=== PATIENT | male | born 1960 | race Caucasian/White ===

== ENCOUNTER 2017-04-22 09:42 | Emergency (ER) | payer MEDICARE ==
--- NOTE | 2017-04-22 10:25 | UC ---
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 he is here with his sister. she states he had a colonoscopy in July of last year and it was normal. He is on blood thinner for Afib. He has had some loose stools lately. He denies cosntipation. He said he was having pain with BM yesterday. " He is here w/ his sister Milena, with whom he lives. Their Mom lives w/ them as well. He moved here in 01/06 from [place]. he has a pcp but has not yet established w/ cardiology or GI. scope was done in [place]. -no known h/o diverticulosis or hemorrhiods. -blood is bright red, not dark. -denies being lightheaded or dizzy. no cp or SOB. no syncope -he is an insulin for poorly controlled DM w/ recent a1c of 10. -follows w/ [facility] in [place]. - History Of Current Complaint Chief Complaint: UCGI Stated Complaint: RECTAL BLEEDING Time Seen by Provider: 04/22/17 10:12 Pain Intensity: 0 - Allergies/Home medications Allergies/Adverse Reactions: Allergies Allergy/AdvReac Type Severity Reaction Status Date / Time ibuprofen [From Advil] Allergy Headache Verified 04/22/17 10:04 Home Medications: Home Medications Apixaban* [Eliquis*] 5 mg PO BID 04/22/17 [History Confirmed 04/22/17] Atorvastatin* [Lipitor*] 20 mg PO 1700 04/22/17 [History Confirmed 04/22/17] Diltiazem CD CAP* [Cardizem CD CAP*] 180 mg PO DAILY 04/22/17 [History Confirmed 04/22/17] Fenofibrate 150 mg PO DAILY 04/22/17 [History Confirmed 04/22/17] Insulin Degludec [Tresiba Flextouch] 1 dose SUBCUT DAILY 04/22/17 [History Confirmed 04/22/17] Insulin LISPRO* [HumaLOG*] 1 dose SUBCUT DIRECTED 04/22/17 [History Confirmed 04/22/17] Levothyroxine TAB* [Synthroid TAB*] 100 mcg PO DAILY 04/22/17 [History Confirmed 04/22/17] Lisinopril TAB* [Prinivil TAB*] 5 mg PO DAILY 04/22/17 [History Confirmed ] Methylphenidate TAB* [Ritalin TAB*] 10 mg PO DAILY 04/22/17 [History Confirmed 04/22/17] PMH/Surg Hx/FS Hx/Imm Hx Previously Healthy: Yes Endocrine History: Diabetes, Hypothyroidism Cardiovascular History: Atrial Fibrillation - Surgical History Surgical History: Yes Surgery Procedure, Year, and Place: Procedure r/t PNA, drained fluid out? - Family History Known Family History: Positive: Hypertension - Social History Alcohol Use: None Substance Use Type: None Smoking Status (MU): Never Smoked Tobacco Review of Systems Constitutional: Negative Skin: Negative Eyes: Negative ENT: Negative Respiratory: Negative Cardiovascular: Negative Gastrointestinal: Other - rectal bleeding Genitourinary: Negative Motor: Negative Neurovascular: Negative Musculoskeletal: Negative Neurological: Negative Psychological: Negative Is Patient Immunocompromised?: No All Other Systems Reviewed And Are Negative: Yes Physical Exam - Summary Physical Exam Summary: He is lying supine on stretcher. Triage Information Reviewed: Yes Appearance: Well-Appearing, No Pain Distress, Well-Nourished - very pleasant. sister is very good historian and takes very good care of him. Vital Signs: Initial Vital Signs Temp 98.8 F 04/22/17 09:59 Pulse 76 04/22/17 09:59 Resp 14 04/22/17 09:59 BP 146/89 04/22/17 09:59 Pulse Ox 96 04/22/17 09:59 Vital Signs Reviewed: Yes Eye Exam: Normal ENT Exam: Normal Respiratory: Positive: Lungs clear, Normal breath sounds Cardiovascular: Positive: No Murmur, Other: - irreg/irreg Abdomen Description: Positive: Nontender, Soft, Other: - Rectal exam done w/ RN Marcelina Genao present. sister in room w/ back turned. There is bright red blood on depends and buttocks. There is an area of a small clot. after area is cleaned, there is a oblong, elevated ~2 cm firm lesion per-rectally. It is dark colored/?ulcerated. There is no obvious bleeding from site. It is tender and firm, not fluctuant. Neurological Exam: Normal Psychological Exam: Normal Bleed Course/Dx - Course Course Of Treatment: right per-rectal lesion is likely source of bleeding. once cleaned, there is no obvious bleeding from that site. DDX includes lesion vs ext thrombosed hemrrhoid. recommend surgical evaluation to r/o rodri-rectal mass. -offered ER for surgical eval, but there is no active/fast bleeding at this time and he is ASX. They prefer to wait to see how it goes. If worsens/ persists/ or develops lightheaded or dizziness. will go to ER. -do not stop eliquis at this time - should disc w/ cardiology. 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 -they are very agreeable w/ plan. -also using padding that covers rectum, not just genital area. - Differential Dx/Diagnosis Differential Diagnosis/HQI/PQRI: Cancer, Crohn's Disease, Hemorrhoids, Other - diverticulosis Provider Diagnoses: rectal bleed, AFib, anti-coagulation Discharge - Discharge Plan Condition: Stable Disposition: HOME Patient Education Materials: Rectal Bleeding (ED) Referrals: Brody Rivera DO [Primary Care Provider] - Additional Instructions: The bleeding is coming from either a right sided external hemorrhoid vs lesion that is seen. The bleeding is exacerbated b/c of the eliquis. I don't believe that the bleeding is significant enough to stop or hold the eliquis. We discussed options of going to the ER at this time w/ hopes that you would be seen by a surgeon. However, because you are not lightheaded/dizzy, it is reasonable that you await to see your PCP on Monday. If your symptoms do worsen or if you develop lightheaded or dizzy or chest pains, you should go to the ER. Even if the bleeding stops, I recommend that you see a colorectal surgeon to rule out a possible mass on the right buttocks. -We also talked about putting more padding in the rectum area than what the depends offers to help absorb the bleeding.
== END 2017-04-22 10:57 | disposition home or self-care (01) ==
LOC: UCCORT 09:42
DX: K62.5 Hemorrhage of anus and rectum (principal); I48.91 Unspecified atrial fibrillation; Z79.01 Long term (current) use of anticoagulants; Z88.8 Allergy status to other drugs, medicaments and biological substances; E11.9 Type 2 diabetes mellitus without complications; Z79.4 Long term (current) use of insulin; E03.9 Hypothyroidism, unspecified
CPT/HCPCS: 99201; G0463